=== PATIENT | male | born 2000 | race African-American/Black ===

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

== ENCOUNTER → 2019-08-03 | Outpatient (CLI) | payer OTHER ==
[2019-08-03 16:32] LABS: ALBUMIN 5.2 g/dL (3.5-5.0); ALKALINE PHOSPHATASE 58 U/L (38-126); ANION GAP 12 (5-19); ASPARTATE AMINO TRANSFERASE 37 U/L (17-59); BILIRUBIN,TOTAL 1.5 mg/dL (0.2-1.3); BLOOD UREA NITROGEN 14 mg/dL (7-20); CALCIUM 10.6 mg/dL (8.4-10.2); CARBON DIOXIDE 26 mmol/L (22-30); CHLORIDE 101 mmol/L (98-107); CHOLESTEROL 192.89 mg/dL (0-200); GLUCOSE 96 mg/dL (75-110); POTASSIUM 4.3 mmol/L (3.6-5.0); TOTAL PROTEIN 8.4 g/dL (6.3-8.2); TRIGLYCERIDES 152 mg/dL (<150)
[2019-08-03 16:43] LABS: DIRECT LDL 125 mg/dL (<100)
[2019-08-03 16:47] LABS: VLDL CHOLESTEROL 30.4 mg/dL (10-31)
[2019-08-03 16:49] LABS: FREE T4 (FREE THYROXINE) 0.98 ng/dL (0.78-2.19)
[2019-08-03 17:03] LABS: THYROID STIMULATING HORMONE 1.21 uIU/mL (0.47-4.68)
== END ==
LOC: OD 15:38
PROVIDERS: ATTEND Pediatrics
DX: E03.8 Other specified hypothyroidism (principal); R63.5 Abnormal weight gain; R73.09 Other abnormal glucose
CPT/HCPCS: 36415; 80053; 80061; 83036; 84436; 84439; 84443